=== PATIENT | female | born 1995 | race African-American/Black ===

== ENCOUNTER 2018-10-05 17:14 | Emergency (ER) | payer OTHER, SELFPAY ==
[2018-10-05 17:16] VITALS: BP 123/89; PULSE 119; RESP 20; TEMP 36.6; O2SAT 100
--- NOTE | 2018-10-05 17:44 | PC.NURSE ---
pt [employer], while working developed watery eyes, itching, sneezing, throat itching, went to medical, sent here. pt remain alert and awake, noted, rash on the bridge of nose, left eye swelling, denies visual changes. denies resp distress. breath sound clear to auscultate throughout. no other rash,itching , only the anterior face/head. pt reports, right upper molar removed 4 days ago, pt taking percocet and ibuprofen.
[2018-10-05 17:47] VITALS: BP 116/79; PULSE 113; RESP 17; O2SAT 94
[2018-10-05] MEDS: diphenhydrAMINE 25 MG TABLET 50 MG PO (17:50)
[2018-10-05 18:00] VITALS: BP 123/93; PULSE 101; RESP 17; O2SAT 99
[2018-10-05] MEDS: predniSONE 20 MG TABLET 40 MG PO (18:41)
--- NOTE | 2018-10-06 03:46 | ED.ALLEREA ---
HPI - Allergic Reaction General Chief complaint: Allergic Reaction Stated complaint: Allergic reaction, throat scratchy, swelling Time Seen by Provider: 10/05/18 18:04 Source: patient and family Mode of arrival: ambulatory Limitations: no limitations History of Present Illness HPI narrative: 23-year-old female nonsmoker with history of allergic reactions presents by ambulance for evaluation of an itchy and scratchy throat as well as left eye. 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 She denies any tongue lip or throat swelling. She denies any difficulty breathing or significant pruritic rash or hives. MD complaint: allergic reaction Onset (ago): minute(s) Exposure: food Known history of allergy to: citric acid Symptoms: itching Severity: mild Treatment prior to arrival: none Previous Allergic Reaction History: none Related Data Home Medications Medication Instructions Recorded Confirmed diphenhydramine HCl 50 mg PO Q4H PRN #0 09/15/16 ibuprofen 800 mg PO TID #0 09/15/16 loratadine [Claritin Liqui-Gel] 10 mg PO QDAYP PRN #0 09/15/16 Previous Rx's Medication Instructions Recorded nitrofurantoin monohyd/m-cryst 100 mg PO BID 5 Days #0 cap 09/15/16 [Macrobid] methylprednisolone [Medrol (Kris)] See Rx Instructions .ROUTE 10/05/18 .COMPLEX #21 each Allergies Allergy/AdvReac Type Severity Reaction Status Date / Time Iodine and Iodide Containing Allergy Unknown Verified 10/05/18 17:20 Produc [IODINE AND IODIDE CONTAINING PRODUC] citric acid Allergy Verified 10/05/18 19:10 Review of Systems Constitutional Denies chills, Denies fever(s), Denies lethargy and Denies weakness Eyes Denies change in vision, Denies eye discharge, Denies irritation, Reports itchy eyes and Denies loss of vision ENT Ears, Nose, Mouth, and Throat: Denies change in voice, Denies neck pain and Denies sore throat Cardiovascular Denies chest pain, Denies irregular heart rhythm, Denies lightheadedness, Denies palpitations, Denies dyspnea, Denies dyspnea on exertion and Denies orthopnea Respiratory Denies cough, Denies dyspnea, Denies dyspnea on exertion and Denies wheezing Gastrointestinal Gastrointestinal: Denies abdominal pain, Denies change in bowel habits, Denies diarrhea, Denies nausea and Denies vomiting Genitourinary Denies hematuria, Denies flank pain, Denies urinary incontinence and Denies urinary urgency Musculoskeletal Denies neck pain Integumentary/Breasts Denies pruritus, Denies erythema, Denies rash and Denies wounds Neurologic Denies confusion, Denies loss of vision and Denies weakness Psychiatric Denies anxiety, Denies confusion, Denies depression, Denies homicidal ideation and Denies suicidal ideation Endocrine Denies palpitations Hematologic/Lymphatic Denies easy bruising Allergic/Immunologic Reports itchy eyes and Denies wheezing PFSH Social History Smoking Status: Never smoker Social History Smoking Status: Never smoker Exam Narrative Exam Narrative: GEN: 23F AOx3 and in mild distress, obese EYES: Pupils are equal, round, and reactive to light and accommodation. Extraoccular muscles are intact bilaterally. There is no subconjunctival hemorrhage or exudate. HEENT: no tongue, lip, throat swelling or erythema CHEST: Lungs are clear to auscultation bilaterally and free of wheezes, rales, or rhonchi. Heart rate is regular rhythm, there are no murmurs, clicks, rubs, or gallops. There is no chest wall tenderness. ABD: Abdomen is soft and nontender. There is no guarding or rebound. Bowel sounds are normal in all 4 quadrants. There is no mass or organomegaly. EXT: Full painless ROM of all extremities with no loss of sensation or strength. SKIN: Warm, pink, and dry. No erythema or rash Initial Vital Signs Initial Vital Signs: Vital Signs Temperature 97.9 F 10/05/18 17:16 Pulse Rate 119 H 10/05/18 17:16 Respiratory Rate 20 10/05/18 17:16 Blood Pressure 123/89 10/05/18 17:16 Pulse Oximetry 100 10/05/18 17:16 Course Course Narrative: The patient feeling tremendous relief from the above-stated therapies. No indication for epinephrine Orders Ordered: Discontinued Medications Diphenhydramine HCl (Benadryl) 50 mg PO NOW ONE Stop: 10/05/18 17:50 Last Admin: 10/05/18 17:50 Dose: 50 mg Prednisone (Deltasone) 40 mg PO NOW ONE Stop: 10/05/18 18:17 Last Admin: 10/05/18 18:41 Dose: 40 mg Ranitidine HCl (Zantac) 300 mg PO NOW ONE Stop: 10/05/18 18:17 Last Admin: 10/05/18 18:41 Dose: 300 mg Discharge Plan Departure Patient Disposition: Home Clinical Impression: Allergic reaction Qualifiers: Encounter type: initial encounter Qualified Code(s): T78.40XA - Allergy, unspecified, initial encounter Discharge Date/Time: 10/05/18 19:15 Interventions: ED Discharge Assessment Last Done: 10/05/18 18:45 Instructions: DI for General Allergic Reactions Activity Restrictions/Additional Instructions: *You have been diagnosed with [alelrgic reaction ] *What to do: *Take medications as directed *Follow up with your primary care provider in 2-3 days, call for an appointment. Let them know you were seen in the Emergency Department and that we ask that you be seen in follow up *Return to ER if you should have any new, worsening or concerning symptoms Prescriptions: New methylprednisolone [Medrol (Kris)] 4 mg tablets,dose pack See Rx Instructions .ROUTE .COMPLEX Qty: 21 RF: 0 No Action diphenhydramine HCl 50 MG capsule 50 mg PO Q4H PRNQty: 0 RF: 0 ibuprofen 800 MG tablet 800 mg PO TID Qty: 0 RF: 0 loratadine [Claritin Liqui-Gel] 10 MG capsule 10 mg PO QDAYP PRNQty: 0 RF: 0 nitrofurantoin monohyd/m-cryst [Macrobid] 100 MG capsule 100 mg PO BID 5 Days Qty: 0 RF: 0
== END 2018-10-05 19:15 | disposition home or self-care (01) ==
PROVIDERS: Emergency Provider Emergency Medicine
DX: T78.40XA Allergy, unspecified, initial encounter (principal)
CPT/HCPCS: 99282; 99283

== ENCOUNTER 2019-05-21 21:28 | Emergency (ER) | payer OTHER, SELFPAY ==
[2019-05-21 21:39] VITALS: BP 127/91; PULSE 92; RESP 16; TEMP 36.9; O2SAT 100; BMI 30.7
--- NOTE | 2019-05-21 21:39 | ED_ITS ---
HPI - Allergic Reaction General Chief complaint: Skin/Abscess/Foreign Body Stated complaint: states breaking out all over her body Time Seen by Provider: 05/21/19 21:30 Source: patient Mode of arrival: Ambulatory Limitations: no limitations History of Present Illness HPI narrative: 23-year-old female nonsmoker with extensive allergic history presents with a chief complaint of a few days of intense itching and rash which is widespread across her body. She denies any tongue, lip or throat swelling. She has no trouble breathing nor swallowing. She has been taking antihistamines at home without much in the way of improvement. She denies any new lotions, soaps, foods or pets. MD complaint: allergic reaction Onset (ago): day(s) Exposure: unknown Symptoms: rash and itching Severity: moderate Treatment prior to arrival: benadryl Previous Allergic Reaction History: prior ED visit(s) Related Data Home Medications Medication Instructions Recorded Confirmed diphenhydramine HCl 50 mg PO Q4H PRN #0 09/15/16 ibuprofen 800 mg PO TID #0 09/15/16 loratadine [Claritin Liqui-Gel] 10 mg PO QDAYP PRN #0 09/15/16 Previous Rx's Medication Instructions Recorded nitrofurantoin monohyd/m-cryst 100 mg PO BID 5 Days #0 cap 09/15/16 [Macrobid] methylprednisolone [Medrol (Kris)] See Rx Instructions .ROUTE 10/05/18 .COMPLEX #21 each prednisone 20 mg PO DAILY #5 tab 05/21/19 Allergies Allergy/AdvReac Type Severity Reaction Status Date / Time Iodine and Iodide Containing Allergy Unknown Verified 10/05/18 17:20 Produc [IODINE AND IODIDE CONTAINING PRODUC] citric acid Allergy Verified 10/05/18 19:10 Review of Systems Constitutional Constitutional: Denies chills, Denies fatigue, Denies fever(s), Denies frequent falls, Denies lethargy and Denies weakness Eyes Eyes: Denies change in vision, Denies eye discharge, Denies irritation and Denies loss of vision ENT Ears, Nose, Mouth, and Throat: Denies change in voice, Denies dizziness, Denies neck pain, Denies sore throat and Denies throat swelling Cardiovascular Cardiovascular: Denies chest pain, Denies irregular heart rhythm, Denies lightheadedness, Denies palpitations, Denies dyspnea, Denies dyspnea on exertion and Denies orthopnea Respiratory Respiratory: Denies cough, Denies dyspnea, Denies dyspnea on exertion and Denies wheezing Gastrointestinal Gastrointestinal: Denies abdominal pain, Denies change in bowel habits, Denies diarrhea, Denies nausea and Denies vomiting Genitourinary Genitourinary: Denies hematuria, Denies flank pain, Denies urinary incontinence and Denies urinary urgency Musculoskeletal Musculoskeletal: Denies back pain, Denies muscle weakness, Denies neck pain, Denies numbness and Denies tingling Integumentary/Breasts Skin/Breast: Denies pruritus, Denies erythema, Reports rash and Denies wounds Neurologic Neurologic: Denies behavioral changes, Denies confusion, Denies dizziness, Denies frequent falls, Denies loss of vision, Denies numbness, Denies tingling and Denies weakness Psychiatric Psychiatric: Denies anxiety, Denies behavioral changes, Denies confusion, Denies depression, Denies homicidal ideation and Denies suicidal ideation Endocrine Endocrine: Denies fatigue, Denies flushing and Denies palpitations Hematologic/Lymphatic Hematologic/Lymphatic: Denies easy bruising Allergic/Immunologic Allergic/Immunologic: Denies urticaria, Denies throat swelling and Denies wheezing Patient History Social History Smoking Status: Never smoker alcohol intake frequency: 0-2 drinks per day Substance Use Type: does not use Exam Narrative Exam Narrative: GENERAL: [23rd] year old patient appears stated age. Well- nourished, well-developed patient, in mild distress. HEAD: Atraumatic. Normocephalic. EYES: Pupils equal round and reactive. Extraocular motions intact. No scleral icterus. No injection or drainage. ENT: Nose without bleeding, purulent drainage. Throat without erythema, tonsillar hypertrophy or exudate. Airway patent. NECK: Trachea midline. Non tender CARDIOVASCULAR: Regular rate and rhythm without murmurs, gallops, or rubs. RESPIRATORY: Clear to auscultation. Breath sounds equal bilaterally. No wheezes, rales, or rhonchi. GASTROINTESTINAL: Abdomen soft, non-tender, nondistended. EXTREMITIES: No edema or joint tenderness. BACK: Nontender without deformity or crepitance. No flank tenderness. NEURO: AOx3. SKIN: No rash or erythema of visible areas Initial Vital Signs Initial Vital Signs: Vital Signs Temperature 98.5 F 05/21/19 21:39 Pulse Rate 92 H 05/21/19 21:39 Respiratory Rate 16 05/21/19 21:39 Blood Pressure 127/91 H 05/21/19 21:39 Pulse Oximetry 100 05/21/19 21:39 Course Orders Ordered: Discontinued Medications Famotidine (Pepcid) 20 mg in 50 mls @ 200 mls/hr IV NOW ONE Stop: 05/21/19 21:53 Last Infusion: 05/21/19 22:00 Dose: 0 mls/hr Documented by: Admin: 05/21/19 21:45 Dose: 200 mls/hr Documented by: GERRY Methylprednisolone (Solu-Medrol 125 Mg Vial) 125 mg IV NOW ONE Stop: 05/21/19 21:39 Last Admin: 05/21/19 21:45 Dose: 125 mg Documented by: GERRY Vital Signs Vital signs: Vital Signs - 8 hr 05/21/19 21:39 05/21/19 22:36 Temperature 98.5 F Pulse Rate 92 H 76 Respiratory Rate 16 16 Blood Pressure 127/91 H 102/75 Pulse Oximetry 100 100 Discharge Plan Departure Patient Disposition: Home Clinical Impression: Urinary tract infection without complication Allergic reaction Qualifiers: Encounter type: initial encounter Qualified Code(s): T78.40XA - Allergy, unspecified, initial encounter Discharge Date/Time: 05/21/19 22:36 Activity Restrictions/Additional Instructions: *You have been diagnosed with [generalized allergic reaction with unknown cause] *What to do: *Take medications as directed: over the counter benadryl and pepcid or zantac *Follow up with your primary care provider in 2-3 days, call for an appointment. Let them know you were seen in the Emergency Department and that we ask that you be seen in follow up *Return to ER if you should have any new, worsening or concerning symptoms Prescriptions: New prednisone 20 mg tablet 20 mg PO DAILY Qty: 5 RF: 0 No Action diphenhydramine HCl 50 MG capsule 50 mg PO Q4H PRNQty: 0 RF: 0 ibuprofen 800 MG tablet 800 mg PO TID Qty: 0 RF: 0 loratadine [Claritin Liqui-Gel] 10 MG capsule 10 mg PO QDAYP PRNQty: 0 RF: 0 nitrofurantoin monohyd/m-cryst [Macrobid] 100 MG capsule 100 mg PO BID 5 Days Qty: 0 RF: 0 methylprednisolone [Medrol (Kris)] 4 mg tablets,dose pack See Rx Instructions .ROUTE .COMPLEX Qty: 21 RF: 0
[2019-05-21] MEDS: FAMOTIDINE 20 MG/50 ML PIGGYBACK 200 MG IV (21:45)
[2019-05-21] MEDS: methylPREDNISolone 125 MG/2 ML VIAL IV (21:45)
[2019-05-21 22:36] VITALS: BP 102/75; PULSE 76; RESP 16; O2SAT 100
== END 2019-05-21 22:36 | disposition home or self-care (01) ==
PROVIDERS: Emergency Provider Emergency Medicine
DX: T78.40XA Allergy, unspecified, initial encounter (principal)
CPT/HCPCS: 96374; 96375; 99283; 99284; J2930